=== PATIENT | male | born 1965 | race African-American/Black ===

== ENCOUNTER 2016-12-19 02:56 | Emergency (ER) | payer MEDICAID ==
[~2016-12-19] VITALS: Ht 165.1 cm; Wt 64.0 kg
[2016-12-19] MEDS ORDERED: BACITRACIN ZINC OINT UDPKT TOP ONE (08:15)
[2016-12-19 09:30] LABS: PROTHROMBIN TIME 10.7 sec
[2016-12-19 09:37] LABS: CARBON DIOXIDE 30 mEq/L (21-32); CHLORIDE 104 mEq/L (98-107); ETHANOL BLOOD < 10 mg/dL
[2016-12-19 09:59] LABS: EOSINOPHILS % 3.5 % (0.0-5.0); HEMATOCRIT. 40.1 % (42.0-52.0); HEMOGLOBIN. 13.6 g/dL (14.0-18.0); LYMPHOCYTES % 41.3 % (20.0-50.0); MEAN CORPUSCULAR HEMOGLOBIN 30.1 pg (28.0-32.0); MEAN CORPUSCULAR VOLUME 88.5 fL (80.0-94.0); MEAN PLATELET VOLUME 7.3 fl (7.4-10.4); MONOCYTES % 8.8 % (2.0-8.0); NEUTROPHILS % 45.4 % (40.0-76.0); PLATELET 258 x1000/uL (130-400); RED BLOOD CELL COUNT 4.53 mill/uL (4.7-6.1); RED CELL DISTRIBUTION WIDTH 14.5 % (11.6-14.6)
[2016-12-19 13:55] VITALS: BP 127/73
== END 2016-12-19 14:21 | disposition home or self-care (01) ==
LOC: ER 07:18
DX: M79.671 Pain in right foot (principal); M79.672 Pain in left foot; R42 Dizziness and giddiness; F17.200 Nicotine dependence, unspecified, uncomplicated; F14.10 Cocaine abuse, uncomplicated
CPT/HCPCS: 36415; 73630; 80053; 80307; 80329; 85025; 85610; 99285; G0482

== ENCOUNTER 2017-09-05 19:19 | Emergency (ER) | payer MEDICAID ==
[~2017-09-05] VITALS: Ht 170.2 cm; Wt 72.0 kg
[2017-09-06 02:26] LABS: CHLORIDE 105 mEq/L (98-107)
[2017-09-06 02:27] LABS: BASOPHILS % 1.2 % (0.0-2.0); EOSINOPHILS % 1.2 % (0.0-5.0); HEMATOCRIT. 39.5 % (42.0-52.0); HEMOGLOBIN. 13.2 g/dL (14.0-18.0); MEAN CORPUSCULAR HEMOGLOBIN 30.3 pg (28.0-32.0); MEAN CORPUSCULAR VOLUME 90.6 fL (80.0-94.0); MEAN PLATELET VOLUME 7.2 fl (7.4-10.4); MONOCYTES % 8.1 % (2.0-8.0); NEUTROPHILS % 61.5 % (40.0-76.0); PLATELET 305 x1000/uL (130-400); RED BLOOD CELL COUNT 4.36 mill/uL (4.7-6.1); RED CELL DISTRIBUTION WIDTH 13.2 % (11.6-14.6)
[2017-09-06 06:50] VITALS: BP 130/76
== END 2017-09-06 06:52 | disposition home or self-care (01) ==
LOC: ER 19:42
DX: S81.801A Unspecified open wound, right lower leg, initial encounter (principal); L03.115 Cellulitis of right lower limb; F20.9 Schizophrenia, unspecified; Z98.890 Other specified postprocedural states; X58.XXXA Exposure to other specified factors, initial encounter; Y93.89 Activity, other specified; Y99.8 Other external cause status; Y92.89 Other specified places as the place of occurrence of the external cause
CPT/HCPCS: 36415; 73590; 80048; 85025; 99285